=== PATIENT | female | born 1995 | race African-American/Black ===

== ENCOUNTER 2019-01-02 10:44 | Outpatient (REF) | payer BC, SELFPAY ==
--- NOTE | 2019-01-02 10:00 | PAPFT_PTH ---
PATIENT: David Louis LOC: [facility] U#:[id number] AGE/SX: 23/F ROOM: RE01/02/[address]: Marilyn Vanegas MD : 1995 BED: DIS: 01/02/2019 SPEC #: [id number] RECD: 01/02/19 13:10 STATUS: SHOAIB REVic #: [id number] THEO: 01/02/19 10:[address]: Marilyn Vanegas DEPT: [facility] Cytology RECD BY: Penny Andrade Tissues: 1 - CX/ENDOCX FOR PAP SMEARS Procedures: PAP THIN PREP/UVM Screening Comments: [id number]
== END 2019-01-02 11:04 ==
LOC: LBN 10:44
PROVIDERS: Visit Provider Obstetrics & Gynecology
DX: Z12.4 Encounter for screening for malignant neoplasm of cervix (principal)
CPT/HCPCS: 88142

== ENCOUNTER 2019-03-10 17:03 | Emergency (ER) | payer BC, SELFPAY ==
--- NOTE | 2019-03-10 17:05 | W.ED.GENAD ---
Discharge Plan Disposition Patient Disposition: HOME Condition: Fair Discharge Details Chief Complaint: Orthopedic Clinical Impression: Edema Primary Care Provider: None,None ED Provider: Violet Loya Home Meds and New Rx's Prescriptions: New cephalexin [Keflex] 500 mg capsule 500 mg PO BID Qty: 14 RF: 0 Continued drospirenone-ethinyl estradiol [KELLI (28)] 3-0.02 mg tablet 1 tab PO DAILY Qty: 28 RF: 11 No Action metformin 1,000 mg tablet extended release 24hr 1,000 mg PO QPM Qty: 90 RF: 3 Discharge Instructions Instructions: Cellulitis (ED), Edema (ED) Additional Instructions: Encourage hydration. Encourage elevation of the lower extremities. Please use your compression hose as discussed. Continue with medications as previously prescribed. Please monitor foot for signs of infection including redness, warmth, increased pain, fever/chills. If these arise please begin antibiotics as prescribed. If infection spreads, or you develop other new/worsening symptoms please seek care urgently once again. I have asked our healthcare representative to help facilitate follow-up with primary care Discharge Data Discharge Date/Time-TO BE ENTERED AT DEPARTURE: 03/10/19 18:37 Medical Decision Making Patient is a 23-year-old female presenting today, accompanied by family, with chief complaint of left lower extremity pain and swelling. Medical history significant for PCOS. She reports that she often has lower extremity edema, particularly in her feet, this is increasing over the past 2 days. Patient flew back from [place] yesterday. Had also noted pain in the lower extremity and foot which is atypical. Pain is worse on the dorsal aspect of the foot leading up into the calf. She denies any altered sensation. She is ambulating with an antalgic gait. She reports that she was having some erythema on the dorsal aspect of the foot but this seems to largely have subsided. She did take ibuprofen today at work and reports that this was very beneficial in her discomfort. She denies any shortness of breath or chest pain. No history of DVT, clots, no family history of clot. Patient is on estrogen supplements. On exam, she has had lower extremity edema, left greater than right. She is tender in the left foot and in the left calf. No evidence of infection at this time. No erythema, warmth, opening the skin. She does have an excoriated area on the medial aspect of the left calf no signs of infection. Plan to obtain CBC, CMP and d-dimer. Discussed this plan with the patient and her mother who is in agreement. Patient has not had any trauma denies the need for imaging at this time. Ultrasound is not available at this time of day. Labs are reassuring, no signs of infection, d-dimer is less than 500. I discussed the findings with patient and her mother. Encouraged compression hose, elevation of lower extremities. Patient is able to show me pictures from yesterday and she did appear that time to have cellulitis with erythema and she reported warmth. I will prescribe an antibiotic for watch and wait approach particularly as the patient does not have a primary care. I have asked her healthcare representative to help patient establish with primary care. We discussed when she should begin the antibiotics but I did advise holding off on this at this time. Patient and I discussed red flags that should prompt her to be seen urgently once again. All of her questions and concerns were addressed and she is in agreement with this plan peer HPI General Mode of arrival: ambulatory. Date/Time Provider Initiated Documentation: 03/10/19 17:05. Limitations to Documentation: no limitations. Information obtained by: patient, family and RN notes reviewed. History of Present Illness 23 year old F presents to the emergency department with the chief complaint of left lower extremity swelling and pain, described as moderate, with intensity rated at 5. Quality is described as aching, and is localized to the left and lower extremity. Patient reports no radiation. Patient started experiencing this day(s) (1) and it has been constant. Immobilization improves symptom(s), and Medication improves symptom(s), Movement worsens symptoms . Patient notes rash (noted erythema on dorsal foot, now resolved); denies chest pain, cough, fever/chills, shortness of breath, syncope and weakness. Patient did receive the following treatments prior to arrival, NSAID (improved pain to a 2/10) Related Data Home Medications Medication Instructions Recorded Confirmed drospirenone 3 mg-ethinyl 1 tab PO DAILY #28 tab 01/02/19 01/02/19 estradiol 0.02 mg tablet metformin ER 1,000 mg 1,000 mg PO QPM #90 tab 01/02/19 01/02/19 tablet,extended release 24hr cephalexin [Keflex] 500 mg PO BID #14 cap 03/10/19 Previous Rx's Medication Instructions Recorded drospirenone 3 mg-ethinyl 1 tab PO DAILY #28 tab 01/02/19 estradiol 0.02 mg tablet metformin ER 1,000 mg 1,000 mg PO QPM #90 tab 01/02/19 tablet,extended release 24hr cephalexin [Keflex] 500 mg PO BID #14 cap 03/10/19 Allergies Allergy/AdvReac Type Severity Reaction Status Date / Time No Known Allergies Allergy Verified 03/10/19 17:32 Review of Systems Constitutional Reports as per HPI, Denies chills, Denies fever(s), Denies headache(s) and Denies weakness ENT Denies headache(s) Cardiovascular Reports as per HPI, Denies chest pain, Denies syncope, Denies dyspnea and Denies dyspnea on exertion Respiratory Reports as per HPI, Denies cough, Denies dyspnea, Denies dyspnea on exertion and Denies wheezing Gastrointestinal Denies abdominal pain, Denies change in bowel habits, Denies nausea and Denies vomiting Musculoskeletal Reports as per HPI, Reports abnormal gait (antalgic) and Denies tingling Integumentary/Breasts Reports as per HPI, Reports erythema and Denies wounds Neurologic Reports as per HPI, Reports abnormal gait (antalgic), Denies syncope, Denies headache(s), Denies tingling, Denies paresthesias and Denies weakness Allergic/Immunologic Denies wheezing ON LICENSE OF [facility] Medical History PCOS (polycystic ovarian syndrome) (Acute) Social History Smoking/Tobacco Use Status: Never Alcohol Intake: never Substance use type: does not use Counseling given: No Exam Const General: cooperative, healthy appearing, comfortable, no acute distress, well developed and well groomed Nutritional Appearance: average body habitus and well nourished Orientation: alert and awake Resp Effort & Inspection: normal respiratory effort, able to speak in complete sentences and no respiratory distress Cardio Rate: regular rate Rhythm: regular rhythm Skin General skin exam: excoriation(s) (left medial calf) Neuro General: alert and awake Cognition: normal cognition Speech: speech normal Gait: normal gait Motor: muscle tone normal throughout Sensory Exam: no sensory deficits noted Extrem Left lower extremity: normal capillary refill, edema Details: non-pitting and 1+, knee Details: normal to inspection, lower leg Details: tenderness (mild diffuse discomfort at areas of swelling) and abrasion (excoriations medial); no erythema, no palpable cords and no crepitus, ankle Details: pitting edema and foot Details: normal capillary refill, tenderness Location: of the dorsal foot and abnormal ROM of toe Details: pain with active ROM; no unusual warmth, no abrasions, no lacerations, no ecchymosis and no crepitus Psych Appearance: grossly normal and well kempt Mental Status: mental status grossly normal Speech and Movement: speech and movement normal
[2019-03-10 17:17] VITALS: BP 140/84; PULSE 80; RESP 16; TEMP 36.7; O2SAT 100
--- NOTE | 2019-03-10 17:30 | ED.GENADUL_ITS ---
Discharge Plan Disposition Patient Disposition: HOME Condition: Fair Discharge Details Chief Complaint: Orthopedic Clinical Impression: Edema Primary Care Provider: None,None ED Provider: Violet Loya Home Meds and New Rx's Prescriptions: New cephalexin [Keflex] 500 mg capsule 500 mg PO BID Qty: 14 RF: 0 Continued drospirenone-ethinyl estradiol [KELLI (28)] 3-0.02 mg tablet 1 tab PO DAILY Qty: 28 RF: 11 No Action metformin 1,000 mg tablet extended release 24hr 1,000 mg PO QPM Qty: 90 RF: 3 Discharge Instructions Instructions: Cellulitis (ED), Edema (ED) Additional Instructions: Encourage hydration. Encourage elevation of the lower extremities. Please use your compression hose as discussed. Continue with medications as previously prescribed. Please monitor foot for signs of infection including redness, warmth, increased pain, fever/chills. If these arise please begin antibiotics as prescribed. If infection spreads, or you develop other new/worsening symptoms please seek care urgently once again. I have asked our lead caregiver to help facilitate follow-up with primary care Discharge Data Discharge Date/Time-TO BE ENTERED AT DEPARTURE: 03/10/19 18:37 Medical Decision Making Patient is a 23-year-old female presenting today, accompanied by family, with chief complaint of left lower extremity pain and swelling. Medical history significant for PCOS. She reports that she often has lower extremity edema, particularly in her feet, this is increasing over the past 2 days. Patient flew back from [place] yesterday. Had also noted pain in the lower extremity and foot which is atypical. Pain is worse on the dorsal aspect of the foot leading up into the calf. She denies any altered sensation. She is ambulating with an antalgic gait. She reports that she was having some erythema on the dorsal aspect of the foot but this seems to largely have subsided. She did take ibuprofen today at work and reports that this was very beneficial in her discomfort. She denies any shortness of breath or chest pain. No history of DVT, clots, no family history of clot. Patient is on estrogen supplements. On exam, she has had lower extremity edema, left greater than right. She is tender in the left foot and in the left calf. No evidence of infection at this time. No erythema, warmth, opening the skin. She does have an excoriated area on the medial aspect of the left calf no signs of infection. Plan to obtain CBC, CMP and d-dimer. Discussed this plan with the patient and her mother who is in agreement. Patient has not had any trauma denies the need for imaging at this time. Ultrasound is not available at this time of day. Labs are reassuring, no signs of infection, d-dimer is less than 500. I discussed the findings with patient and her mother. Encouraged compression hose, elevation of lower extremities. Patient is able to show me pictures from yesterday and she did appear that time to have cellulitis with erythema and she reported warmth. I will prescribe an antibiotic for watch and wait approach particularly as the patient does not have a primary care. I have asked her lead caregiver to help patient establish with primary care. We discussed when she should begin the antibiotics but I did advise holding off on this at this time. Patient and I discussed red flags that should prompt her to be seen urgently once again. All of her questions and concerns were addressed and she is in agreement with this plan peer HPI General Mode of arrival: ambulatory . Date/Time Provider Initiated Documentation: 03/10/19 17:05 . Limitations to Documentation: no limitations . Information obtained by: patient, family and RN notes reviewed . History of Present Illness 23 year old F presents to the emergency department with the chief complaint of left lower extremity swelling and pain, described as moderate, with intensity rated at 5. Quality is described as aching, and is localized to the left and lower extremity. Patient reports no radiation. Patient started experiencing this day(s) (1) and it has been constant. Immobilization improves symptom(s), and Medication improves symptom(s), Movement worsens symptoms . Patient notes rash (noted erythema on dorsal foot, now resolved); denies chest pain, cough, fever/chills, shortness of breath, syncope and weakness. Patient did receive the following treatments prior to arrival, NSAID (improved pain to a 2/10) Related Data Home Medications Medication Instructions Recorded Confirmed drospirenone 3 mg-ethinyl 1 tab PO DAILY #28 tab 01/02/19 01/02/19 estradiol 0.02 mg tablet metformin ER 1,000 mg 1,000 mg PO QPM #90 tab 01/02/19 01/02/19 tablet,extended release 24hr cephalexin [Keflex] 500 mg PO BID #14 cap 03/10/19 Previous Rx's Medication Instructions Recorded drospirenone 3 mg-ethinyl 1 tab PO DAILY #28 tab 01/02/19 estradiol 0.02 mg tablet metformin ER 1,000 mg 1,000 mg PO QPM #90 tab 01/02/19 tablet,extended release 24hr cephalexin [Keflex] 500 mg PO BID #14 cap 03/10/19 Allergies Allergy/AdvReac Type Severity Reaction Status Date / Time No Known Allergies Allergy Verified 03/10/19 17:32 Review of Systems Constitutional Reports as per HPI, Denies chills, Denies fever(s), Denies headache(s) and Den ies weakness ENT Denies headache(s) Cardiovascular Reports as per HPI, Denies chest pain, Denies syncope, Denies dyspnea and Denies dyspnea on exertion Respiratory Reports as per HPI, Denies cough, Denies dyspnea, Denies dyspnea on exertion and Denies wheezing Gastrointestinal Denies abdominal pain, Denies change in bowel habits, Denies nausea and Denies vomiting Musculoskeletal Reports as per HPI, Reports abnormal gait (antalgic) and Denies tingling Integumentary/Breasts Reports as per HPI, Reports erythema and Denies wounds Neurologic Reports as per HPI, Reports abnormal gait (antalgic), Denies syncope, Denies headache(s), Denies tingling, Denies paresthesias and Denies weakness Allergic/Immunologic Denies wheezing [facility] Medical History PCOS (polycystic ovarian syndrome) (Acute) Social History Smoking/Tobacco Use Status: Never Alcohol Intake: never Substance use type: does not use Counseling given: No Exam Const General: cooperative, healthy appearing, comfortable, no acute distress, well developed and well groomed Nutritional Appearance: average body habitus and well nourished Orientation: alert and awake Resp Effort & Inspection: normal respiratory effort, able to speak in complete sentences and no respiratory distress Cardio Rate: regular rate Rhythm: regular rhythm Skin General skin exam: excoriation(s) (left medial calf) Neuro General: alert and awake Cognition: normal cognition Speech: speech normal Gait: normal gait Motor: muscle tone normal throughout Sensory Exam: no sensory deficits noted Extrem Left lower extremity: normal capillary refill, edema Details: non-pitting and 1+, knee Details: normal to inspection, lower leg Details: tenderness (mild diffuse discomfort at areas of swelling) and abrasion (excoriations medial); no erythema, no palpable cords and no crepitus, ankle Details: pitting edema and foot Details: normal capillary refill, tenderness Location: of the dorsal foot and abnormal ROM of toe Details: pain with active ROM; no unusual warmth, no abrasions, no lacerations, no ecchymosis and no crepitus Psych Appearance: grossly normal and well kempt Mental Status: mental status grossly normal Speech and Movement: speech and movement normal
[2019-03-10 17:58] LABS: Abs Immature Grans 0.01 k/cumm (0.0-0.09); Absolute Basophil Count 0.01 k/cumm (0.0-0.2); Absolute Eosinophil Count 0.12 k/cumm (0.0-0.7); Absolute Lymphocyte Count 3.41 k/cumm (1.2-3.4); Absolute Monocyte Count 0.46 k/cumm (0.11-0.7); Absolute Neutrophil Count 3.62 k/cumm (1.2-6.7); Basophils % 0.1; Eosinophils % 1.6; HCT 40.1 % (36.0-46.0); HGB 12.7 g/dL (12.0-15.5); Immature Grans % 0.1; Lymphocytes % 44.7; Mean Corp. HGB Concentration 31.7 g/dL (32.0-36.0); Mean Corpuscular Hemoglobin 27.9 pg (27.0-33.0); Mean Corpuscular Volume 88.1 fL (80-95); Mean Platelet Volume 9.7 fL (8.0-11.0); Neutrophils % 47.5; Platelet Count 381 x1000/uL (130-400); RBC 4.55 m/cumm (4.00-5.20); RBC Distribution Width 13.1 % (11.7-14.6); White Blood Cell Count 7.63 k/cumm (4.4-10.8)
[2019-03-10 18:05] LABS: ALT 35 U/L (12-78); AST 27 U/L (15-37); Albumin 3.9 g/dL (3.4-5.0); Alkaline Phosphatase 81 U/L (46-116); Anion Gap 6.9 mmol/L (3-11); BUN 8 mg/dL (7-18); Bilirubin, Total 0.3 mg/dL (0.2-1.0); CO2 29.1 mmol/L (21.0-32.0); CREATININE 0.87 mg/dL (0.55-1.02); Calcium 8.8 mg/dL (8.5-10.1); Chloride 103 mmol/L (98-107); Glucose 126 mg/dL (70-100); Potassium 3.5 mmol/L (3.5-5.1); Sodium 139 mmol/L (136-145); Total Protein 8.2 g/dL (6.4-8.2)
[2019-03-10 18:19] LABS: D-Dimer 160 ng/mlFEU (<500)
--- NOTE | 2019-03-10 18:34 | NUR.NOTE ---
Nursing Note: Faxed referral to [facility], [place], Leah Rosa is union laborer for telephone call. Pt has no PCP. Alycia Shaikh.
[2019-03-10 18:38] VITALS: BP 135/88; PULSE 83; RESP 16; TEMP 36.7; O2SAT 98
== END 2019-03-10 18:37 | disposition home or self-care (01) ==
PROVIDERS: Emergency Provider Physician Assistant
DX: R60.0 Localized edema (principal)
CPT/HCPCS: 36415; 80053; 99283; 85025; 85379

== ENCOUNTER 2019-12-25 10:03 | Outpatient (REF) | payer BC, SELFPAY ==
[2019-12-25 12:25] LABS: Abs Immature Grans 0.01 k/cumm (0.0-0.09); Absolute Basophil Count 0.01 k/cumm (0.0-0.2); Absolute Eosinophil Count 0.08 k/cumm (0.0-0.7); Absolute Lymphocyte Count 2.83 k/cumm (1.2-3.4); Absolute Monocyte Count 0.51 k/cumm (0.11-0.7); Absolute Neutrophil Count 1.95 k/cumm (1.2-6.7); Basophils % 0.2; Eosinophils % 1.5; HCT 42.4 % (36.0-46.0); HGB 13.5 g/dL (12.0-15.5); Immature Grans % 0.2 %; Lymphocytes % 52.5; Mean Corp. HGB Concentration 31.8 g/dL (32.0-36.0); Mean Corpuscular Hemoglobin 27.7 pg (27.0-33.0); Mean Corpuscular Volume 87.1 fL (80-95); Mean Platelet Volume 9.8 fL (8.0-11.0); Monocytes % 9.5; Neutrophils % 36.1; Platelet Count 437 x1000/uL (130-400); RBC 4.87 m/cumm (4.00-5.20); RBC Distribution Width 12.8 % (11.7-14.6); White Blood Cell Count 5.39 k/cumm (4.4-10.8)
[2019-12-25 12:45] LABS: ALT 35 U/L (14-59); AST 20 U/L (15-37); Albumin 3.9 g/dL (3.4-5.0); Alkaline Phosphatase 85 U/L (46-116); Anion Gap 8.5 mmol/L (3-11); BUN 10 mg/dL (7-18); Bilirubin, Total 0.5 mg/dL (0.2-1.0); CO2 29.5 mmol/L (21.0-32.0); CREATININE 0.86 mg/dL (0.55-1.02); Calcium 8.9 mg/dL (8.5-10.1); Chloride 104 mmol/L (98-107); Glucose 91 mg/dL (74-106); Potassium 4.1 mmol/L (3.5-5.1); Sodium 142 mmol/L (136-145); Total Protein 7.7 g/dL (6.4-8.2)
== END 2019-12-25 10:23 ==
LOC: NCHCN 10:03
PROVIDERS: Visit Provider Nurse Practitioner Family
DX: R21 Rash and other nonspecific skin eruption (principal); R53.83 Other fatigue
CPT/HCPCS: 80053; 84443; 85025

== ENCOUNTER 2020-01-04 01:20 | Outpatient (CLI) | payer BC, SELFPAY ==
--- NOTE | 2020-01-04 | DI.US_ITS ---
EXAM: US PELVIS TRANSVAGINAL CLINICAL HISTORY: POLYCYSTIC OVARIAN SYNDROME, E28.2 TECHNIQUE: Ultrasound performed using standard protocol. COMPARISON: No exams were available for comparison FINDINGS: Pelvic ultrasound was performed transabdominally and transvaginally. Please see the accompanying shikha a sheet for measurements of pelvic structures. Uterus is unremarkable in appearance with cysts 7 mil limeter thick homogeneous endometrial stripe. No free fluid identified in the cul-de-sac. Limited s jose of the kidneys is unremarkable. Right ovary contains at least 30 follicles with an 11 cc volume. Left ovary contains at least 28 follicles 8.2 cm volume. IMPRESSION: Ovarian appearance consistent with suspected diagnosis of polycystic ovarian syndrome. DATA REPOSITORY:
== END 2020-01-04 01:40 ==
PROVIDERS: PCP Nurse Practitioner Family; Visit Provider Nurse Practitioner Family
DX: E28.2 Polycystic ovarian syndrome (principal)
CPT/HCPCS: 76830; 76856

== ENCOUNTER 2020-04-15 10:46 | Outpatient (CLI) | payer BC, SELFPAY ==
--- NOTE | 2020-04-15 11:20 | DI.RAD_ITS ---
EXAM: XR CHEST 2V PA LATERAL CLINICAL HISTORY: CHEST WALL PAIN, R07.89 TECHNIQUE: 2D digital imaging was performed. COMPARISON: No exams were available for comparison FINDINGS: The heart is not enlarged. The lungs are clear and well expanded. No pleural effusion seen. Mediastin al contours appear intact. IMPRESSION: Normal chest
== END 2020-04-15 11:06 ==
PROVIDERS: PCP Nurse Practitioner Family; Visit Provider Nurse Practitioner Family
DX: R07.89 Other chest pain (principal)
CPT/HCPCS: 71046

== ENCOUNTER 2020-04-15 11:21 | Outpatient (REF) | payer BC, SELFPAY ==
[2020-04-15 14:26] LABS: Calculated LDL 93 mg/dL (<100); Cholesterol 164 mg/dL (<200); HDL Cholesterol 49 mg/dL (40-60); Triglyceride 111 mg/dL (<150)
== END 2020-04-15 11:41 ==
LOC: NCHCN 11:21
PROVIDERS: PCP Nurse Practitioner Family; Visit Provider Nurse Practitioner Family
DX: E28.2 Polycystic ovarian syndrome (principal)
CPT/HCPCS: 80061

== ENCOUNTER 2020-06-24 15:06 | Outpatient (REF) | payer BC, SELFPAY ==
[2020-06-27 08:32] LABS: SARS-CoV-2 RNA Undetected (Undetected); SARS-CoV-2 Specimen Source Nasopharynx
== END 2020-06-24 15:26 ==
LOC: NCHCN 15:06
PROVIDERS: PCP Nurse Practitioner Family; Visit Provider Nurse Practitioner Family
DX: Z20.828 Contact with and (suspected) exposure to other viral communicable diseases (principal)
CPT/HCPCS: U0003

== ENCOUNTER 2020-10-04 19:34 | Outpatient (REF) | payer BC, SELFPAY ==
[2020-10-08 07:11] LABS: SARS-CoV-2 RNA Undetected (Undetected); SARS-CoV-2 Specimen Source Nasal
== END 2020-10-04 19:54 ==
LOC: NCHCN 19:34
PROVIDERS: PCP Nurse Practitioner Family; Visit Provider Nurse Practitioner Family
DX: Z11.59 Encounter for screening for other viral diseases (principal)
CPT/HCPCS: U0003

== ENCOUNTER 2020-11-21 18:45 | Outpatient (REF) | payer BC, SELFPAY ==
[2020-11-22 21:47] LABS: COVID-19 RT-PCR Result NEGATIVE (Negative)
== END 2020-11-21 19:05 ==
LOC: NCHCN 18:45
PROVIDERS: PCP Nurse Practitioner Family; Visit Provider Nurse Practitioner Family
DX: Z11.52 Encounter for screening for COVID-19 (principal)
CPT/HCPCS: U0003

== ENCOUNTER 2021-01-20 15:13 | Outpatient (CLI) | payer BC, SELFPAY ==
[2021-01-25 13:55] LABS: TB Interpretation Negative (Negative); TB2 Ag minus Nil 0.08 IU/mL
== END 2021-01-20 15:14 | disposition home or self-care (01) ==
LOC: LBO 15:14
PROVIDERS: PCP Nurse Practitioner Family; Visit Provider Nurse Practitioner Family
DX: R76.11 Nonspecific reaction to tuberculin skin test without active tuberculosis (principal)
CPT/HCPCS: 36415; 86480

== ENCOUNTER 2021-01-20 22:43 | Outpatient (CLI) | payer BC, SELFPAY ==
--- NOTE | 2021-01-20 | DI.RAD_ITS ---
EXAM: XR CHEST 2V PA LATERAL CLINICAL HISTORY: TB SKIN TEST POSITIVE R76.11 TECHNIQUE: 2D digital imaging was performed. COMPARISON: CR XR CHEST 2V PA LATERAL from 04/15/2020 FINDINGS: MEDIASTINUM: Normal. HEART: Normal. PULMONARY VASCULATURE: Normal. LUNGS: Clear. PLEURAL SPACE: No pleural effusion or pneumothorax. BONE:Normal. OTHER FINDINGS:Normal. IMPRESSION: No acute pulmonary findings. DATA REPOSITORY: RADIATION DOSE DELIVERED:
== END 2021-01-20 23:03 ==
PROVIDERS: PCP Nurse Practitioner Family; Visit Provider Nurse Practitioner Family
DX: R76.11 Nonspecific reaction to tuberculin skin test without active tuberculosis (principal)
CPT/HCPCS: 71046

== ENCOUNTER 2022-05-24 02:40 | Outpatient (CLI) | payer BC, SELFPAY ==
[2022-05-24 09:42] LABS: Abs Immature Grans 0.01 10^3/uL (0.0-0.06); Absolute Basophil Count 0.03 10^3/uL (0.0-0.2); Absolute Eosinophil Count 0.17 10^3/uL (0.0-0.7); Absolute Lymphocyte Count 3.57 10^3/uL (1.2-3.4); Absolute Monocyte Count 0.51 10^3/uL (0.1-0.8); Absolute Neutrophil Count 3.03 10^3/uL (1.2-6.7); Basophils % 0.4; Eosinophils % 2.3; HCT 39.2 % (36.0-46.0); HGB 12.4 g/dL (11.2-15.7); Immature Grans % 0.1; Lymphocytes % 48.8; MCH 28.1 pg (27.0-33.0); MCHC 31.6 % (32.0-36.0); MCV 89 fL (80-95); MPV 9.1 fL (8.0-11.0); Neutrophils % 41.4; Platelet Count 368 10^3/uL (130-400); RBC 4.41 10^6/uL (3.93-5.22); RDW 12.3 % (11.7-14.6); RDW-SD 40.5 fL; WBC 7.32 10^3/uL (4.4-10.8)
[2022-05-24 10:43] LABS: ALT 29 U/L (14-59); AST 20 U/L (15-37); Albumin 3.7 g/dL (3.4-5.0); Alkaline Phosphatase 67 U/L (46-116); Anion Gap 7.3 mmol/L (3-11); BUN 10 mg/dL (7-18); Bilirubin, Total 0.5 mg/dL (0.2-1.0); CO2 29.7 mmol/L (21.0-32.0); CREATININE 0.9 mg/dL (0.55-1.02); Calcium 8.7 mg/dL (8.5-10.1); Chloride 105 mmol/L (98-107); Glucose 88 mg/dL (74-106); Potassium 3.8 mmol/L (3.5-5.1); Sodium 142 mmol/L (136-145); Total Protein 7.6 g/dL (6.4-8.2)
== END 2022-05-24 02:41 | disposition home or self-care (01) ==
LOC: LBO 02:40
PROVIDERS: PCP Nurse Practitioner Family; Visit Provider Obstetrics & Gynecology
DX: E28.2 Polycystic ovarian syndrome (principal); N91.1 Secondary amenorrhea
CPT/HCPCS: 36415; 80053; 85025

== ENCOUNTER 2023-03-20 14:20 | Outpatient (REF) | payer BC, SELFPAY ==
[2023-03-20 18:42] LABS: Absolute Basophil Count 0.02 10^3/uL (0.0-0.2); Absolute Eosinophil Count 0.11 10^3/uL (0.0-0.7); Absolute Lymphocyte Count 2.93 10^3/uL (1.2-3.4); Absolute Monocyte Count 0.49 10^3/uL (0.1-0.8); Absolute Neutrophil Count 2.67 10^3/uL (1.2-6.7); Basophils % 0.3; Eosinophils % 1.8; HCT 42.3 % (36.0-46.0); HGB 13.5 g/dL (11.2-15.7); Lymphocytes % 47.1; MCH 28.1 pg (27.0-33.0); MCHC 31.9 % (32.0-36.0); MCV 88 fL (80-95); MPV 9.3 fL (8.0-11.0); Monocytes % 7.9; Neutrophils % 42.9; Platelet Count 391 10^3/uL (130-400); RBC 4.81 10^6/uL (3.93-5.22); RDW 12.5 % (11.7-14.6); RDW-SD 40.9 fL; WBC 6.22 10^3/uL (4.4-10.8)
[2023-03-20 19:03] LABS: Hemoglobin A1C 6.2 % (<5.7)
[2023-03-20 19:23] LABS: Vitamin B12 437 pg/mL (193-986)
== END 2023-03-20 14:21 | disposition home or self-care (01) ==
LOC: NCHCN 14:20
PROVIDERS: Visit Provider Nurse Practitioner Family
DX: R53.83 Other fatigue (principal); R73.09 Other abnormal glucose; Z79.899 Other long term (current) drug therapy
CPT/HCPCS: 82607; 83036; 85025

== ENCOUNTER 2023-12-03 10:44 | Outpatient (REF) | payer OTHER, SELFPAY ==
--- NOTE | 2023-12-03 09:20 | PAPFT_PTH ---
PATIENT: David Louis LOC: [facility] U#:[id number] AGE/SX: 28/F ROOM: RE12/03/[address]: Dulce Raya DO : 1995 BED: DIS: 12/03/2023 SPEC #: [id number] RECD: 12/03/23 13:00 STATUS: SHOAIB REQ #: [id number] THEO: 12/03/23 09:[address]: Dulce Raya DEPT: [facility] Cytology RECD BY: Penny Andrade ENTERED: 12/03/23 13:00 SP TYPE: PAPFT OTHR DR: Unknown,Unknown Tissues: 1 - CX/ENDOCX FOR PAP SMEARS Procedures: PAP THIN PREP/UVM Screening HPV DNA PROBE Comments: [id number] (CHLAMYDIA/GC)
[2023-12-04 14:26] LABS: Chlamydia Result Negative (Negative); GC Result Negative (Negative)
== END 2023-12-03 10:45 | disposition home or self-care (01) ==
LOC: LBN 10:44
PROVIDERS: Visit Provider Obstetrics & Gynecology
DX: Z12.4 Encounter for screening for malignant neoplasm of cervix (principal)
CPT/HCPCS: 87491; 87591; 88142; 87624

== ENCOUNTER 2024-11-24 20:18 | Outpatient (REF) | payer BC, SELFPAY ==
[2024-11-24 19:36] LABS: Hemoglobin A1C 6.9 % (<5.7)
[2024-11-24 19:44] LABS: ALT 30 U/L (14-59); AST 20 U/L (15-37); Albumin 3.7 g/dL (3.4-5.0); Alkaline Phosphatase 93 U/L (46-116); Anion Gap 6.5 mmol/L (3-11); BUN 5 mg/dL (7-18); Bilirubin, Total 0.46 mg/dL (0.2-1.0); CO2 28.5 mmol/L (21.0-32.0); CREATININE 0.8 mg/dL (0.55-1.02); Calcium 9.2 mg/dL (8.5-10.1); Calculated LDL 108 mg/dL (<100); Chloride 106 mmol/L (98-107); Cholesterol 190 mg/dL (<200); Glucose 105 mg/dL (74-106); HDL Cholesterol 62 mg/dL (40-60); Sodium 141 mmol/L (136-145); TSH (W/Ref FT4) 1.28 uIU/mL (0.36-3.74); Total Protein 7.9 g/dL (6.4-8.2); Triglyceride 102 mg/dL (<150)
[2024-11-25 05:38] LABS: FREE T4 0.89 ng/dL (0.76-1.46)
== END 2024-11-24 20:19 | disposition home or self-care (01) ==
LOC: NCHCN 20:18
PROVIDERS: Visit Provider Nurse Practitioner Family
DX: Z68.41 Body mass index [BMI] 40.0-44.9, adult (principal); I10 Essential (primary) hypertension
CPT/HCPCS: 80053; 80061; 83036; 84439; 84443

== ENCOUNTER 2025-07-02 19:34 | Outpatient (REF) | payer BC, SELFPAY ==
[2025-07-02 16:39] LABS: Microalb ug/mg Crea 6.4 ug/mg Cr
[2025-07-02 21:24] LABS: Anion Gap 7.8 mmol/L (3-11); BUN 6 mg/dL (7-18); CO2 28.2 mmol/L (21.0-32.0); Calcium 9.6 mg/dL (8.5-10.1); Chloride 106 mmol/L (98-107); Estimated GFR 102.86 (mL/min/1.73m2); Glucose 84 mg/dL (74-106); Potassium 4.0 mmol/L (3.5-5.1); Sodium 142 mmol/L (136-145)
== END 2025-07-02 19:35 | disposition home or self-care (01) ==
LOC: NCHCN 19:34
PROVIDERS: Visit Provider Student in an Organized Health Care Education/Training Program
DX: E11.9 Type 2 diabetes mellitus without complications (principal); I10 Essential (primary) hypertension
CPT/HCPCS: 80048; 82043; 82570